=== PATIENT | female | born 1975 | race Caucasian/White ===

== ENCOUNTER 2017-02-06 15:39 | Emergency (ER) | payer OTHER ==
[~2017-02-06] VITALS: Wt 59.0 kg
[2017-02-06] MEDS ORDERED: HYDROCODONE/APAP (5/325) TAB PO ONE (16:30)
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
--- NOTE | 2017-02-06 17:41 | RADRPT ---
PROCEDURE: XR Lumbar Spine. CLINICAL INDICATION: Back pain. TECHNIQUE: Three views. AP, lateral and cone-down lateral view of the lumbar spine were obtained. COMPARISON: No prior studies are available for comparison. FINDINGS: There is normal stature and alignment of the vertebrae. There is no fracture. There is no lytic or blastic lesion. The disk height is normal. There is an IUD centrally in the pelvis. IMPRESSION: 1. IUD centrally in the pelvis. 2. Otherwise unremarkable images of the lumbar spine. RPTAT: QQ .Hansel Vale MD, MD Date Time Electronically viewed and signed by .Hansel Vale MD, MD on 02/06/2017 17:41 .R/
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
[2017-02-06] MEDS ORDERED: TRAM50TA2 PO (18:02)
[2017-02-06] MEDS ORDERED: CYCL-319 PO (18:03)
[2017-02-06] MEDS ORDERED: NAPR-260 PO (18:03)
== END 2017-02-06 18:43 | disposition home or self-care (01) ==
LOC: FTE 15:39
DX: S40.212A Abrasion of left shoulder, initial encounter (principal); S10.91XA Abrasion of unspecified part of neck, initial encounter; V49.40XA Driver injured in collision with unspecified motor vehicles in traffic accident, initial encounter
CPT/HCPCS: 72040; 72100; 73030; 73562